=== PATIENT | female | born 1955 | race Hispanic/Latino ===

== ENCOUNTER 2020-09-29 09:00 | Observation (INO) | payer BC, MEDICARE ==
[~2020-09-29] VITALS: Ht 149.9 cm; Wt 67.8 kg
[~2020-09-29 09:00] MED LIST: LEVO125T11 PO
[2020-09-29 12:41] LABS: BASOPHILS % (AUTO) 1.2 % (0.0-5.0); EOSINOPHILS % (AUTO) 2.1 % (0.0-8.0); HEMATOCRIT 39.9 % (36-48); MEAN CORPUSCULAR HEMOGLOBIN 27.5 pg (27.0-33.0); MEAN CORPUSCULAR HGB CONC 32.1 g/dL (32.0-36.0); MEAN CORPUSCULAR VOLUME 85.6 fL (79-99); MONOCYTES % (AUTO) 7.7 % (3.0-13.0); NEUTROPHILS % (AUTO) 49.7 % (40.0-77.0); PLATELET COUNT (AUTO) 278 K/uL (130-400); RED BLOOD CELL COUNT(AUTO) 4.66 MIL/uL (4.00-5.50); RED CELL DISTRIBUTION WIDTH 14.7 % (11.0-15.5); WHITE BLOOD COUNT (AUTO) 5.7 K/uL (4.8-10.8)
[2020-09-29 13:02] LABS: INR 0.92 (0.85-1.15)
[2020-09-29 13:06] LABS: APPEARANCE,URINE Clear (CLEAR); BILIRUBIN,URINE Negative (NEGATIVE); COLOR,URINE Yellow (YELLOW); GLUCOSE, URINE (UA) Negative (NEGATIVE); KETONES,URINE Negative (NEGATIVE); LEUKOCYTE ESTERASE ,URINE Moderate (NEGATIVE); NITRATE,URINE Negative (NEGATIVE); OCCULT BLOOD,URINE Negative (NEGATIVE); PH,URINE 5.5 (5.0-8.0); PROTEIN,URINE Negative (NEGATIVE); UROBILINOGEN,URINE 0.2 mg/dL (0.2-1.0)
[2020-09-29 13:14] LABS: CREATININE 0.6 mg/dL (0.5-1.5); POTASSIUM 3.8 mmol/L (3.5-5.1)
[2020-09-29 13:34] LABS: BACTERIA,URINE Moderate /HPF (None Seen); RBC,URINE 0-1 /HPF (0-1); SQUAMOUS EPITHELIAL CELL,UR Rare /HPF (0-2); WBC,URINE 0-1 /HPF (0-1)
[2020-10-05 12:59] VITALS: BP 157/72
[2020-10-05] MEDS ORDERED: FLUT1AER IH (14:26)
[2020-10-05] MEDS ORDERED: LOSA50TA64 PO (14:26)
[2020-10-05] MEDS ORDERED: FLUT1DIS4 IH (14:26)
[2020-10-06] VITALS (25 sets, daily range): BP systolic 124–173; BP diastolic 66–93
[2020-10-06] MEDS ORDERED: SODIUM CHLORIDE 0.9% 1000ML 1,000 ML IV ONE (09:46)
[2020-10-06] MEDS: CEFAZOLIN SODIUM 1 GM VIAL ONE ×2 (10:19→14:45)
[2020-10-06] MEDS: VANCOMYCIN 1GM+NS 250ML 250 ML IV SCH ×3 (10:20→22:52)
[2020-10-06] MEDS ORDERED: NITROFURANTOIN MONOHYD/M-CRYST 100 MG CAPSULE PO SCH (12:00)
[2020-10-06] MEDS ORDERED: SCOPOLAMINE HYDROBROMIDE 1 EACH ADH..PATCH TD ONE (13:37)
[2020-10-06] MEDS ORDERED: CEFAZOLIN SODIUM 1 GM VIAL ONE ×2 (13:42→14:06)
[2020-10-06] MEDS ORDERED: TRANEXAMIC ACID 1000MG/10ML ONE ×2 (13:42→17:43)
[2020-10-06] MEDS ORDERED: VANCOMYCIN HCL 1 GM VIAL ONE (13:42)
[2020-10-06] MEDS ORDERED: ONDANSETRON HCL 4 MG/2 ML VIAL ONE (14:12)
[2020-10-06] MEDS ORDERED: MIDAZOLAM HCL 1 MG/ML 2ML VIAL ONE (14:12)
[2020-10-06] MEDS ORDERED: LIDOCAINE PF 2% 5ML ABBOJECT ONE (14:12)
[2020-10-06] MEDS ORDERED: DEXAMETHASONE SOD PHOSPHATE 10MG/ML 1ML VIAL ONE (14:12)
[2020-10-06] MEDS ORDERED: FENTANYL CITRATE PF 50 MCG/1 ML 2ML VIAL ONE ×2 (14:12→15:18)
[2020-10-06] MEDS ORDERED: PROPOFOL 10 MG/ML 20ML VIAL IV ONE (14:12)
[2020-10-06] MEDS ORDERED: ROCURONIUM 10MG/1ML SYR 10 MG/ML ML ONE ×2 (14:13→15:22)
[2020-10-06] MEDS ORDERED: ROPIVACAINE 0.5% 5MG/ML 30ML IJ ONE (14:24)
[2020-10-06] MEDS ORDERED: NEOSTIGMINE 5MG/5ML SYR IV ONE (16:48)
[2020-10-06] MEDS ORDERED: GLYCOPYRROLATE 1 MG/5 ML SYRINGE ONE (16:48)
[2020-10-06] MEDS ORDERED: LIDOCAINE HCL-MPF 1% 2ML VIAL IV PRN (17:00)
[2020-10-06] MEDS ORDERED: POTASSIUM CHLORIDE 20MEQ/100ML 100 ML IV PRN (17:00)
[2020-10-06] MEDS ORDERED: OXYCODONE HCL 5 MG TAB PO PRN ×2 (17:00)
[2020-10-06] MEDS ORDERED: TRAMADOL HCL 50 MG TABLET PO PRN (17:00)
[2020-10-06] MEDS ORDERED: ONDANSETRON HCL 4 MG/2 ML VIAL IVP PRN (17:00)
[2020-10-06] MEDS ORDERED: KETOROLAC TROMETHAMINE 15MG/ML IV PRN (17:00)
[2020-10-06] MEDS ORDERED: CALCIUM CARBONATE 500 MG TABLET PO PRN (17:00)
[2020-10-06] MEDS: SODIUM CHLORIDE 0.9% 1000ML 1,000 ML IV SCH (17:00)
[2020-10-06] MEDS: ACETAMINOPHEN EXTRA STRENGTH 500 MG TABLET PO SCH (17:00)
[2020-10-06] MEDS ORDERED: POTASSIUM CHLORIDE 20 MEQ ERTAB PO PRN (17:00)
[2020-10-06] MEDS ORDERED: POTASSIUM CHLORIDE 10% ELIXIR 20 MEQ/15 ML UDCUP PO PRN (17:00)
[2020-10-06] MEDS ORDERED: FERROUS FUMARATE 324 MG TABLET PO PRN (17:00)
[2020-10-06] MEDS ORDERED: TEMAZEPAM 15 MG CAPSULE PO PRN (17:00)
[2020-10-06] MEDS ORDERED: DiphenhydrAMINE HCL 50 MG/ML VIAL IVP PRN (17:00)
[2020-10-06] MEDS ORDERED: MEPERIDINE-PF 25 MG/ML SYG ONE ×2 (17:20→17:37)
[2020-10-06] MEDS ORDERED: KETOROLAC TROMETHAMINE 30MG/ML ONE (17:57)
[2020-10-06] MEDS ORDERED: SALMETEROL IH PRN (18:45)
[2020-10-06] MEDS ORDERED: FLUTICASONE IH PRN (18:45)
[2020-10-06] MEDS: PHARMACY COMMUNICATION MISC SCH (19:00)
[2020-10-06] MEDS: CELECOXIB 200 MG CAP PO SCH (19:42)
[2020-10-06] MEDS: PREGABALIN 25 MG CAP PO SCH (19:42)
[2020-10-06] MEDS: FAMOTIDINE 20MG TAB 20 MG TAB PO SCH (19:42)
[2020-10-06] MEDS: ASPIRIN 81MG TAB.CHEW PO SCH (19:42)
[2020-10-06] MEDS: CEFAZOLIN SODIUM 1 GM VIAL IVP SCH (21:17)
[2020-10-07] MEDS: ACETAMINOPHEN EXTRA STRENGTH 500 MG TABLET PO SCH ×3 (00:08→17:10)
[2020-10-07] MEDS: SODIUM CHLORIDE 0.9% 1000ML 1,000 ML IV SCH ×2 (02:45→13:00)
[2020-10-07] MEDS: PHARMACY COMMUNICATION MISC SCH ×2 (02:46→11:00)
[2020-10-07 03:49] LABS: HEMATOCRIT 33.6 % (36-48); MEAN CORPUSCULAR HEMOGLOBIN 27.3 pg (27.0-33.0); MEAN CORPUSCULAR HGB CONC 32.4 g/dL (32.0-36.0); MEAN CORPUSCULAR VOLUME 84.2 fL (79-99); RED BLOOD CELL COUNT(AUTO) 3.99 MIL/uL (4.00-5.50); RED CELL DISTRIBUTION WIDTH 13.9 % (11.0-15.5); WHITE BLOOD COUNT (AUTO) 9.5 K/uL (4.8-10.8)
[2020-10-07 03:57] LABS: CREATININE 0.9 mg/dL (0.5-1.5); POTASSIUM 4.2 mmol/L (3.5-5.1)
[2020-10-07 04:00] VITALS: BP 120/67
[2020-10-07] MEDS: CEFAZOLIN SODIUM 1 GM VIAL IVP SCH (05:36)
[2020-10-07] MEDS ORDERED: LEVOTHYROXINE 125 MCG TABLET PO SCH (06:30)
[2020-10-07 08:00] VITALS: BP 125/64
[2020-10-07] MEDS: CELECOXIB 200 MG CAP PO SCH (08:10)
[2020-10-07] MEDS: FAMOTIDINE 20MG TAB 20 MG TAB PO SCH (08:11)
[2020-10-07] MEDS: PREGABALIN 25 MG CAP PO SCH (08:11)
[2020-10-07] MEDS: ASPIRIN 81MG TAB.CHEW PO SCH (08:11)
[2020-10-07] MEDS ORDERED: LOSARTAN 50 MG TABLET PO SCH (09:00)
[2020-10-07] MEDS ORDERED: POLYETHYLENE GLYCOL 3350 17 GM POWD.PACK PO SCH (09:00)
[2020-10-07] MEDS ORDERED: FLUTICASONE/VILANTEROL 1 EACH AER.POW.BA IH SCH ×2 (09:00)
[2020-10-07] MEDS ORDERED: HYDR28.32 TP (09:53)
[2020-10-07] MEDS ORDERED: OXYB10TA30 PO (09:53)
[2020-10-07 11:00] VITALS: BP 123/68
[2020-10-07] MEDS: VANCOMYCIN 1GM+NS 250ML 250 ML IV SCH (12:02)
[2020-10-07 16:32] VITALS: BP 166/46
[2020-10-07] MEDS ORDERED: HYDR-4457 PO (18:11)
[2020-10-07] MEDS ORDERED: ASPI-1005 PO (18:11)
[2020-10-09] MEDS ORDERED: BISACODYL 10 MG SUPP.RECT RC PRN (17:00)
== END 2020-10-07 20:45 | disposition home health service (06) ==
LOC: EDSTATUS 09:00 → DAHIP 10-06 08:24 → 3AH 10-06 18:34
PROVIDERS: ADMIT Orthopaedic Surgery; ATTEND Orthopaedic Surgery
DX: M17.11 Unilateral primary osteoarthritis, right knee (principal); Z20.828 Contact with and (suspected) exposure to other viral communicable diseases; D64.9 Anemia, unspecified; I10 Essential (primary) hypertension; E03.9 Hypothyroidism, unspecified; E11.9 Type 2 diabetes mellitus without complications; Z90.710 Acquired absence of both cervix and uterus; Z98.82 Breast implant status; Z79.899 Other long term (current) drug therapy; Z88.5 Allergy status to narcotic agent
CPT/HCPCS: 27442; 36415 ×2; 80048 ×2; 81001; 82948 ×4; 85025; 85027; 85610; 87077; 87088; 87186; 87641; 93005; 96361 ×3; 96365; 96366 ×2; 96375; 96376; 97039 ×2; 97116 ×2; 97161; 97530 ×2; A4215; A4216; A4221; A4222; A4223 ×2; A4649 ×3; A4663; A4930; A9272; C1776; G0378 ×26; G8978; G8979; G8980; G8981; G8982; G8983; J0690 ×5; J1100; J1885; J2001; J2175 ×2; J2250; J2405 ×2; J2704; J2710; J2795; J3010 ×2; J3370 ×3; J3490 ×3; J7030; J7120; U0003

== ENCOUNTER → 2021-12-12 | Outpatient (CLI) | payer MEDICARE ==
[~2021-12-12] MED LIST changes: +ASPI-1005 PO; +FLUT1AER IH; +FLUT1DIS4 IH; +HYDR-4457 PO; +HYDR28.32 TP; +LOSA50TA64 PO; +OXYB10TA30 PO
== END | disposition home or self-care (01) ==
LOC: RAH 10:38
PROVIDERS: ATTEND Neurological Surgery
DX: M48.02 Spinal stenosis, cervical region (principal); Z98.1 Arthrodesis status
CPT/HCPCS: 72050; 72052

== ENCOUNTER 2022-10-09 07:56 | Observation (INO) | payer MEDICARE ==
[2022-10-06 12:49] LABS: BASOPHILS % (AUTO) 0.6 % (0.0-5.0); EOSINOPHILS % (AUTO) 1.9 % (0.0-8.0); HEMATOCRIT 36.4 % (36-48); LYMPHOCYTES % (AUTO) 33.3 % (21.0-51.0); MEAN CORPUSCULAR HGB CONC 31.9 g/dL (32.0-36.0); MEAN CORPUSCULAR VOLUME 84.7 fL (79-99); MONOCYTES % (AUTO) 6.9 % (3.0-13.0); PLATELET COUNT (AUTO) 273 K/uL (130-400); RED CELL DISTRIBUTION WIDTH 14.4 % (11.0-15.5); WHITE BLOOD COUNT (AUTO) 6.8 K/uL (4.8-10.8)
[2022-10-06 13:22] VITALS: BP 198/89
[2022-10-09] VITALS (28 sets, daily range): BP systolic 97–157; BP diastolic 50–83
[~2022-10-09] VITALS: Ht 152.4 cm; Wt 70.7 kg
[~2022-10-09 07:56] MED LIST changes: -ASPI-1005 PO; +EZET10TA48 PO; -FLUT1AER IH; -FLUT1DIS4 IH; +FLUTICASONE NASAL; -HYDR-4457 PO; -HYDR28.32 TP; -LEVO125T11 PO; +LEVO137C4 PO; -OXYB10TA30 PO; +SOLI10TA7 PO
[2022-10-09] MEDS ORDERED: BUPIVACAINE/PF 0.5% 30ML VIAL ONE (08:03)
[2022-10-09] MEDS ORDERED: KETOROLAC 30MG VIAL (30MG/ML) ONE (08:03)
[2022-10-09] MEDS ORDERED: TRANEXAMIC ACID 1000MG/10ML ONE ×2 (08:03→10:31)
[2022-10-09] MEDS ORDERED: LACTATED RINGERS 1000ML 1,000 ML IV ONE (08:11)
[2022-10-09] MEDS: CEFAZOLIN SODIUM 2 GM VIAL IVPB PRN ×2 (08:45→11:00)
[2022-10-09] MEDS ORDERED: ROCURONIUM 10MG/1ML SYR 10 MG/ML ML ONE (10:31)
[2022-10-09] MEDS ORDERED: MIDAZOLAM HCL 1 MG/ML 2ML VIAL ONE (10:31)
[2022-10-09] MEDS ORDERED: LIDOCAINE HCL-MPF 1% 5ML AMP IJ ONE (10:31)
[2022-10-09] MEDS ORDERED: PROPOFOL 10 MG/ML 20ML VIAL IV ONE (10:31)
[2022-10-09] MEDS ORDERED: FENTANYL CITRATE PF 50 MCG/1 ML 2ML VIAL ONE ×3 (10:32→13:25)
[2022-10-09] MEDS ORDERED: SCOPOLAMINE HYDROBROMIDE 1 EACH ADH..PATCH TD ONE (10:34)
[2022-10-09] MEDS ORDERED: ROPIVACAINE 0.5% 5MG/ML 30ML IJ ONE (11:19)
[2022-10-09] MEDS ORDERED: KETOROLAC 30MG VIAL (30MG/ML) IM ONE (11:50)
[2022-10-09] MEDS ORDERED: TRANEXAMIC ACID 1000MG/10ML IV ONE (13:20)
[2022-10-09] MEDS ORDERED: GLYCOPYRROLATE 1 MG/5 ML SYRINGE ONE (13:27)
[2022-10-09] MEDS ORDERED: NEOSTIGMINE 5MG/5ML SYR IV ONE (13:27)
[2022-10-09] MEDS ORDERED: KETOROLAC 15MG/ML VIAL (15MG/ML) IV PRN (13:30)
[2022-10-09] MEDS ORDERED: FERROUS FUMARATE 324 MG TABLET PO PRN (13:30)
[2022-10-09] MEDS ORDERED: KCL 20 MEQ ERTAB PO PRN (13:30)
[2022-10-09] MEDS ORDERED: CALCIUM CARB 500MG PO PRN (13:30)
[2022-10-09] MEDS ORDERED: POTASSIUM CHLORIDE 10% ELIXIR 20 MEQ/15 ML UDCUP PO PRN (13:30)
[2022-10-09] MEDS: KETOROLAC 15MG/ML VIAL (15MG/ML) IV SCH ×2 (13:30→20:23)
[2022-10-09] MEDS ORDERED: POTASSIUM CHLORIDE 20MEQ/100ML 100 ML IV PRN (13:30)
[2022-10-09] MEDS ORDERED: LIDOCAINE HCL-MPF 1% 2ML VIAL IV PRN (13:30)
[2022-10-09] MEDS ORDERED: SUGAMMADEX SODIUM 200 MG/2 ML VIAL IV ONE (13:36)
[2022-10-09] MEDS ORDERED: MEPERIDINE-PF 25 MG/ML SYG ONE (13:51)
[2022-10-09] MEDS: GABAPENTIN 100 MG CAPSULE PO SCH ×2 (14:00→20:22)
[2022-10-09] MEDS ORDERED: HYDROMORPHONE 1 MG INJ ONE (14:07)
[2022-10-09] MEDS ORDERED: FAMOTIDINE 20MG VIAL IV ONE (14:07)
[2022-10-09] MEDS ORDERED: ONDANSETRON 4MG INJ ONE (14:07)
[2022-10-09] MEDS: ONDANSETRON 4MG INJ IVP PRN ×2 (16:21→20:25)
[2022-10-09] MEDS: 0.9%NACL 1000ML 1,000 ML IV SCH (16:24)
[2022-10-09] MEDS: CEFAZOLIN SODIUM 1 GM VIAL IVP SCH (18:44)
[2022-10-09] MEDS: DOCUSATE SODIUM 100 MG CAP PO SCH (20:22)
[2022-10-09] MEDS: CYCLOBENZAPRINE HCL 10 MG TABLET PO PRN (20:22)
[2022-10-09] MEDS: HYDROCODONE/ACETAMINOPHEN 5/325 MG TAB PO PRN (20:24)
[2022-10-09] MEDS ORDERED: FLUTICASONE PROPIONATE 50MCG/SPRAY 16 GM BOTTLE EN PRN (21:00)
[2022-10-10] MEDS: DiphenhydrAMINE HCL 50 MG/ML VIAL IVP PRN ×2 (01:46→20:53)
[2022-10-10] MEDS: CEFAZOLIN SODIUM 1 GM VIAL IVP SCH (01:46)
[2022-10-10] MEDS: 0.9%NACL 1000ML 1,000 ML IV SCH ×2 (01:49→09:30)
[2022-10-10 04:15] VITALS: BP 128/84
[2022-10-10 04:18] VITALS: BP 136/73
[2022-10-10 04:41] LABS: HEMATOCRIT 29.3 % (36-48); MEAN CORPUSCULAR HEMOGLOBIN 27.4 pg (27.0-33.0); MEAN CORPUSCULAR HGB CONC 33.1 g/dL (32.0-36.0); MEAN CORPUSCULAR VOLUME 82.8 fL (79-99); RED BLOOD CELL COUNT(AUTO) 3.54 MIL/uL (4.00-5.50); RED CELL DISTRIBUTION WIDTH 14.2 % (11.0-15.5); WHITE BLOOD COUNT (AUTO) 6.1 K/uL (4.8-10.8)
[2022-10-10 04:55] LABS: CREATININE 0.8 mg/dL (0.5-1.5); POTASSIUM 3.8 mmol/L (3.5-5.1)
[2022-10-10] MEDS: LEVOTHYROXINE 112 MCG TABLET PO SCH (05:49)
[2022-10-10] MEDS: LEVOTHYROXINE 25 MCG TABLET PO SCH (05:49)
[2022-10-10] MEDS: KETOROLAC 15MG/ML VIAL (15MG/ML) IV SCH (05:50)
[2022-10-10 08:00] VITALS: BP 125/61
[2022-10-10] MEDS: SOLIFENACIN 10 MG PO SCH (09:00)
[2022-10-10] MEDS: GABAPENTIN 100 MG CAPSULE PO SCH ×3 (09:27→20:53)
[2022-10-10] MEDS: DOCUSATE SODIUM 100 MG CAP PO SCH ×2 (09:27→20:52)
[2022-10-10] MEDS: ASPIRIN 325MG TAB PO SCH (09:28)
[2022-10-10] MEDS: POLYETHYLENE GLYCOL 3350 17 GM POWD.PACK PO SCH (09:28)
[2022-10-10] MEDS: TRAMADOL HCL 50 MG TABLET PO PRN ×2 (09:28→17:43)
[2022-10-10 11:15] VITALS: BP 147/54
[2022-10-10] MEDS: LOSARTAN 50 MG TABLET PO SCH (12:11)
[2022-10-10] MEDS: EZETIMIBE 10 MG TAB PO SCH (12:11)
[2022-10-10] MEDS: HYDROCODONE/ACETAMINOPHEN 5/325 MG TAB PO PRN ×3 (12:12→20:55)
[2022-10-10 16:00] VITALS: BP 173/66
[2022-10-10] MEDS ORDERED: VANCOMYCIN 1G VIAL IVPB ONE (16:00)
[2022-10-10] MEDS ORDERED: VANCOMYCIN 1G/250ML KIT 250 ML IV ONE (16:30)
[2022-10-10] MEDS: CYCLOBENZAPRINE HCL 10 MG TABLET PO PRN (20:52)
[2022-10-10 21:16] VITALS: BP 166/77
[2022-10-11 00:06] VITALS: BP 151/71
[2022-10-11 04:13] VITALS: BP 145/72
[2022-10-11] MEDS: LEVOTHYROXINE 25 MCG TABLET PO SCH (05:49)
[2022-10-11] MEDS: LEVOTHYROXINE 112 MCG TABLET PO SCH (05:49)
[2022-10-11 08:00] VITALS: BP 153/74
[2022-10-11] MEDS: ASPIRIN 325MG TAB PO SCH (08:35)
[2022-10-11] MEDS: DOCUSATE SODIUM 100 MG CAP PO SCH (08:36)
[2022-10-11] MEDS: POLYETHYLENE GLYCOL 3350 17 GM POWD.PACK PO SCH (08:36)
[2022-10-11] MEDS: GABAPENTIN 100 MG CAPSULE PO SCH ×2 (08:36→14:24)
[2022-10-11] MEDS: LOSARTAN 50 MG TABLET PO SCH (08:36)
[2022-10-11] MEDS: HYDROCODONE/ACETAMINOPHEN 5/325 MG TAB PO PRN ×2 (08:36→14:24)
[2022-10-11] MEDS: EZETIMIBE 10 MG TAB PO SCH (08:36)
[2022-10-11] MEDS: SOLIFENACIN 10 MG PO SCH (09:00)
[2022-10-11 12:00] VITALS: BP 135/79
[2022-10-11 16:00] VITALS: BP 156/66
[2022-10-11] MEDS ORDERED: HYDR-4060 PO (17:34)
[2022-10-11] MEDS ORDERED: ASPI-1026 PO (17:34)
[2022-10-11] MEDS ORDERED: DOCU-116 PO (17:34)
[2022-10-11] MEDS ORDERED: CYCL-309 PO (17:34)
[2022-10-11] MEDS ORDERED: GABA100C PO (17:34)
[2022-10-12] MEDS ORDERED: BISACODYL 10 MG SUPP.RECT RC PRN (13:30)
== END 2022-10-11 18:50 | disposition home or self-care (01) ==
LOC: DAH 07:56 → DAHIP 07:57 → 4AH 15:14
PROVIDERS: ADMIT Student in an Organized Health Care Education/Training Program; ATTEND Student in an Organized Health Care Education/Training Program
DX: M17.12 Unilateral primary osteoarthritis, left knee (principal); Z20.822 Contact with and (suspected) exposure to COVID-19; D62 Acute posthemorrhagic anemia; I10 Essential (primary) hypertension; E11.9 Type 2 diabetes mellitus without complications; E03.9 Hypothyroidism, unspecified; Z79.899 Other long term (current) drug therapy; Z98.890 Other specified postprocedural states
CPT/HCPCS: 85025; 87088; 84134; 86140; 87426; 36415 ×2; 87641; 27447; 96376 ×2; 96375 ×2; 76942; 64447; 82948 ×2; 73560; 97161; 97530 ×5; 96365; 96366; 80048; 85027; 97039 ×4; 97116 ×4; G0378 ×49; A4663; A4215 ×2; J7120; J3490 ×7; J3010 ×3; J0690 ×3; J1170; J2710; J2250; J2704; J2405 ×3; J1885 ×4; J2175; J2795; G0168; A4649 ×4; C1776; A6255; A5120; A4223; A4222; A4221; J1200 ×2; J3370; A4600

== ENCOUNTER 2025-01-22 06:01 | Day surgery (SDC) | payer MEDICARE ==
--- NOTE | 2025-01-20 12:49 | EKG ---
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
[2025-01-20 12:58] VITALS: BP 132/61; PULSE 67; RESP 18; TEMP 98.1
[2025-01-20 13:32] LABS: BASOPHILS # (AUTO) 0.04 K/uL (0.00-0.20); BASOPHILS % (AUTO) 0.7 % (0.0-5.0); EOSINOPHILS # (AUTO) 0.13 K/uL (0.00-0.70); EOSINOPHILS % (AUTO) 2.3 % (0.0-8.0); HEMATOCRIT 37.9 % (36-48); IMMATURE GRANULOCYTE ABSOLUTE 0.02 K/uL (0-1); LYMPHOCYTES # (AUTO) 2.5 K/uL (1.0-4.8); MEAN CORPUSCULAR HEMOGLOBIN 28.2 pg (27.0-33.0); MEAN CORPUSCULAR HGB CONC 32.2 g/dL (32.0-36.0); MEAN CORPUSCULAR VOLUME 87.7 fL (79-99); MONOCYTES # (AUTO) 0.5 K/uL (0.1-1.0); MONOCYTES % (AUTO) 9.4 % (3.0-13.0); NEUTROPHILS # (AUTO) 2.6 K/uL (1.8-7.7); NEUTROPHILS % (AUTO) 44.3 % (40.0-77.0); PLATELET COUNT (AUTO) 265 K/uL (130-400); RED BLOOD CELL COUNT(AUTO) 4.32 MIL/uL (4.00-5.50); RED CELL DISTRIBUTION WIDTH 14.1 % (11.0-15.5); WHITE BLOOD COUNT (AUTO) 5.8 K/uL (4.8-10.8)
[2025-01-20 13:43] LABS: CREATININE 0.7 mg/dL (0.5-1.0); POTASSIUM 3.9 mmol/L (3.5-5.1)
[~2025-01-22] VITALS: Ht 149.9 cm; Wt 67.9 kg
[2025-01-22] VITALS (18 sets, daily range): BP systolic 97–129; BP diastolic 47–72; PULSE 59–79; RESP 15–20; TEMP 97–98.1
[~2025-01-22 06:01] MED LIST changes: +ATOR20TA65 PO; -EZET10TA48 PO; -FLUTICASONE NASAL; -LEVO137C4 PO; +LEVO137C5 PO; +SEMA1PEN3 SQ
[2025-01-22] MEDS ORDERED: ceFAZolin SODIUM 2 GM VIAL ONE (06:23)
[2025-01-22 06:35] LABS: INR 0.98 (0.85-1.15); PROTHROMBIN TIME 10.4 SEC (9.6-11.6)
[2025-01-22 06:37] LABS: PARTIAL THROMBOPLASTIN TIME 26.5 SEC (26.3-35.5)
[2025-01-22] MEDS: 0.9%NACL 1000ML 1,000 ML IV ONE (06:46)
[2025-01-22] MEDS ORDERED: VANCOMYCIN 1G/250ML KIT 0 ML IV ONE (07:29)
[2025-01-22] MEDS ORDERED: ceFAZolin SODIUM 1 GM VIAL ONE (07:30)
[2025-01-22] MEDS ORDERED: proPOFol 10 MG/ML 20ML VIAL IV ONE (07:50)
[2025-01-22] MEDS ORDERED: GLYCOPYRROLATE 0.2 MG/ML 5 ML VIAL ONE (07:50)
[2025-01-22] MEDS ORDERED: LIDOCAINE PF 100MG/5ML (2%) SYRINGE 5ML ONE (07:50)
[2025-01-22] MEDS ORDERED: dexaMETHasone SOD PHOSPHATE 10MG/ML 1ML VIAL ONE (07:50)
[2025-01-22] MEDS ORDERED: NEOSTIGMINE METHYLSULFATE 1MG/ML IV ONE (07:51)
[2025-01-22] MEDS ORDERED: SUCCINYLCHOLINE CHLORIDE 20 MG/ML 10 ML VIAL ONE (07:51)
[2025-01-22] MEDS ORDERED: MIDAZOLAM HCL 1 MG/ML 2ML VIAL ONE (07:51)
[2025-01-22] MEDS ORDERED: ondanSETRON 4MG INJ ONE (07:51)
[2025-01-22] MEDS ORDERED: rocuRONium bROMide 10MG/1ML 5ML VL ONE (07:51)
[2025-01-22] MEDS ORDERED: FENTanyl CITRate PF 50 MCG/1 ML 2ML VIAL ONE ×2 (07:51→08:50)
[2025-01-22] MEDS: ceFAZolin SODIUM 2 GM VIAL IVPB ONE (08:09)
[2025-01-22] MEDS ORDERED: BUPIvacaine/PF 0.5% 30ML VIAL ONE (09:02)
--- NOTE | 2025-01-22 09:24 | OP ---
Operative Note: DATE OF PROCEDURE: 01/22/25 SURGEON: RANJIT GILLETTE MD BOOM TRUCK DRIVER: [Neto Maurice CFA] ANESTHESIA: [General plus local] ANESTHESIOLOGIST/COMPREHENSIVE ADVISOR: [Dr. 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 chondroplasty medial and lateral femoral condyles] ESTIMATED BLOOD LOSS: [Less than 10 mL] INDICATIONS: [The patient is a 69-year-old female that has a history of a previous patellofemoral joint replacement several years ago. The patient developed a sudden pain to the lateral aspect of the joint several months ago that we have treated conservatively with no improvement. An MRI was performed which was suspicious for a possible lateral meniscal tear which clinically the patient seemed to have. The patient is brought to the operating room for an arthroscopic procedure that she understood, risks, benefits possible complications and agreed to sign the consent form.] DESCRIPTION OF PROCEDURE: [A thorough adequate general anesthesia was achieved the patient's right lower extremity was prepped and draped in the usual manner previous trimming of the tourniquet in the proximal thigh. The extremity was elevated and exsanguinated with an Esmarch bandage the tourniquet was inflated to 250 mg of mercury. The knee was brought to the side of the table and we proceeded then to make two small incisions medial and lateral to the patellar tendon at the joint line level through the skin followed by blunt dissection and the arthroscope cannula was inserted laterally. The knee was brought then into extension on top of the table and evaluation of the patellofemoral joint revealed the components were in good shape but they were covered by some synovial tissue and through the medial portal we proceeded to use the shaver to remove it. Then bending the knee back to the side of the table we found that the patient had also some synovial tissue in the most distal aspect of the femoral component just above the trochlea and this was sharply debrided. Attention was given then to the medial compartment where we noticed that the meniscus was intact with the patient had a very extensive grade 4 chondromalacia of the medial half of the condyle weight-bearing surface. We probed the meniscus to make sure that there was no tears. The loose edges of the condylar defect was sharply debrided with a shaver. Attention was given to the lateral compartment and after passing the arthroscope to the trochlea we noted that the ACL and PCL were intact. Once in the lateral compartment we noticed a very obvious tear along the fibers of the anterior horn of the meniscus and initially my opinion was that I my be able to fix it with sutures. We proceeded then to re-evaluate the rest of the joint bringing the knee into a figure of four and it was noted that the meniscus was intact of the body and posterior horn but the patient presented also grade 3 and four chondromalacia of the most medial aspect of the lateral condyle weight-bearing surface with loose fragments that were sharply debrided. This defect which was more obvious anteriorly make contact with the meniscal tear on flexion and extension. Then I attempted to do a repair of the meniscus by making an incision following the surgical scar for approximately 1 to 1 1/2 inches followed by dissection of the subcutaneous tissue. The patient has significant amount of subcutaneous tissue which was difficult for us to identified the meniscal area. Then we proceeded to penetrate with the hemostat through the medial portal to the same area and after we exposed the tear better we noticed that there was more straightening of the meniscus towards the anterior rim of the tibia and at this point I concluded that it was not going to be possible to pass several stitches through this area. For this reason this part of the procedure was aborted and I proceeded to reapply the scope laterally and then with the use of the medial portal I proceeded then to do a partial lateral meniscectomy by removal of the anterior horn leaving the body and posterior horn of the meniscus. After this was completed the tourniquet was deflated and the arthroscopic wounds were closed with 3-0 nylon sutures. The small incision done in the previous surgical scar was closed with the use of 2-0 Monocryl inverted stitches and a 3-0 Monocryl for closure of the skin subcuticularly. Dermabond was applied to the last incision and a dressing was applied to cover the incisions followed by application of an Chandu bandage. The drapes were then removed and the patient was not transferred to her bed and taken to recovery room for follow-up by anesthesia. There were no complications in the procedure.] RANJIT GILLETTE MD Jan 22, 2025 09:23
[2025-01-22] MEDS: MEPERIDINE-PF 50 MG/ML SYG ONE (10:06)
== END 2025-01-22 11:20 | disposition home or self-care (01) ==
LOC: DAH 06:01
PROVIDERS: ATTEND Orthopaedic Surgery
DX: S83.289A Other tear of lateral meniscus, current injury, unspecified knee, initial encounter (principal); M65.961 Unspecified synovitis and tenosynovitis, right lower leg; M94.261 Chondromalacia, right knee; I10 Essential (primary) hypertension; E11.9 Type 2 diabetes mellitus without complications; E03.9 Hypothyroidism, unspecified; M19.90 Unspecified osteoarthritis, unspecified site; Z79.890 Hormone replacement therapy; Z79.01 Long term (current) use of anticoagulants; Z90.710 Acquired absence of both cervix and uterus; Z82.49 Family history of ischemic heart disease and other diseases of the circulatory system; Z88.5 Allergy status to narcotic agent; Z88.2 Allergy status to sulfonamides; Z79.899 Other long term (current) drug therapy; Z98.890 Other specified postprocedural states; X58.XXXA Exposure to other specified factors, initial encounter; Y93.89 Activity, other specified; Y92.89 Other specified places as the place of occurrence of the external cause; Y99.8 Other external cause status
CPT/HCPCS: 80048; 85025; 36415 ×2; 93005; 29881; 85610; 85730; 82948 ×2; A4223 ×2; A4663; J7120; A4649 ×2; J3010 ×2; J1100; J0330; J7030; J3490 ×2; J2003; J2250; J2704; J2405; J2710; J0665; J2175; J0690 ×2; A6223; A4930; A5120; A4215; A4213; A4222; A4221; A4216; A6450; J3370

== ENCOUNTER 2025-04-16 08:59 | Observation (INO) | payer MEDICARE ==
[2025-04-15 13:57] LABS: BASOPHILS # (AUTO) 0.03 K/uL (0.00-0.20); BASOPHILS % (AUTO) 0.5 % (0.0-5.0); EOSINOPHILS # (AUTO) 0.12 K/uL (0.00-0.70); HEMATOCRIT 38.1 % (36-48); IMMATURE GRANULOCYTE ABSOLUTE 0.01 K/uL (0-1); LYMPHOCYTES # (AUTO) 2.6 K/uL (1.0-4.8); LYMPHOCYTES % (AUTO) 43.6 % (21.0-51.0); MEAN CORPUSCULAR HEMOGLOBIN 28.6 pg (27.0-33.0); MEAN CORPUSCULAR HGB CONC 32.8 g/dL (32.0-36.0); MEAN CORPUSCULAR VOLUME 87.2 fL (79-99); MONOCYTES # (AUTO) 0.6 K/uL (0.1-1.0); MONOCYTES % (AUTO) 9.7 % (3.0-13.0); NEUTROPHILS # (AUTO) 2.6 K/uL (1.8-7.7); PLATELET COUNT (AUTO) 307 K/uL (130-400); RED BLOOD CELL COUNT(AUTO) 4.37 MIL/uL (4.00-5.50); RED CELL DISTRIBUTION WIDTH 14.6 % (11.0-15.5)
[2025-04-15 14:00] LABS: APPEARANCE,URINE CLEAR (CLEAR); BILIRUBIN,URINE NEGATIVE (NEGATIVE); COLOR,URINE LIGHT-YELLOW (YELLOW); GLUCOSE, URINE (UA) NEGATIVE (NEGATIVE); KETONES,URINE NEGATIVE (NEGATIVE); LEUKOCYTE ESTERASE ,URINE NEGATIVE Leu/uL (NEGATIVE); NITRATE,URINE NEGATIVE (NEGATIVE); OCCULT BLOOD,URINE NEGATIVE (NEGATIVE); PH,URINE 5.5 (5.0-8.0); PROTEIN,URINE NEGATIVE (NEGATIVE); UROBILINOGEN,URINE 0.2 mg/dL (0.2-1.0)
[2025-04-15 14:06] LABS: ADD UA MICROSCOPIC NO
--- NOTE | 2025-04-15 14:17 | EKG ---
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
--- NOTE | 2025-04-15 14:30 | NUR ---
preop romain rt instructed pt on incentive spirometry
[2025-04-15 14:51] VITALS: BP 135/73; PULSE 67; RESP 18; TEMP 97.6
--- NOTE | 2025-04-15 15:30 | NUR ---
report dr cadet informed pt has not had a solid meal today. ok for pt to eat then clears until midnight. pt voiced understanding
--- NOTE | 2025-04-15 15:30 | NUR ---
report dr cadet reviewed ekg. ok to proceed
--- NOTE | 2025-04-15 18:34 | NUR ---
[facility] CM SPOKE TO PATIENT OVER THE PHONE THIS EVENING, INITIAL ASSESSMENT DONE. PATIENT IS INDEPENDENT PRIOR TO SURGERY, LIVES AT HOME ALONE, SON LIVES CLOSE BY. PATIENT ALREADY HAS A STANDARD WALKER AND CANE AT HOME. DENIES ANY OTHER EQUIPMENT/SERVICES. FEELS SAFE TO GO BACK HOME, DISCUSSED POSSIBLE HH VS REHAB AT SNF, PT AGREEABLE TO HOME W/HOME HEALTH, TELEPHONE CONSENT CHRISTY OBTAINED FOR [facility]. PENDING DR GILLETTE TNMariajose RECOMMENDATIONS AT THIS TIME. [facility] HOME W/HH ONCE APPROVED. CM TO CONTINUE TO FOLLOW UP. Addendum: 04/15/25 at 1837 by ARSEN LOWE LVN Amended: Links added.
[2025-04-16] VITALS (28 sets, daily range): BP systolic 105–178; BP diastolic 56–91; PULSE 60–99; RESP 14–20; TEMP 97.3–98.2
[~2025-04-16] VITALS: Ht 149.9 cm; Wt 67.1 kg
[~2025-04-16 08:59] MED LIST changes: -ATOR20TA65 PO; +PHARMACY COMMUNICATION MISC SCH
[2025-04-16] MEDS: 0.9%NACL 1000ML 1,000 ML IV ONE (10:06)
[2025-04-16] MEDS: ceFAZolin SODIUM 2 GM VIAL ONE (10:06)
[2025-04-16] MEDS: acetaMINOPHEN 100 ML ONE (11:41)
[2025-04-16] MEDS: GABAPENTIN 300 MG CAPSULE ONE (11:41)
[2025-04-16] MEDS: FAMOTIDINE 20MG VIAL IV ONE (11:41)
[2025-04-16] MEDS: TRANEXAMIC ACID 1000MG/10ML ONE ×2 (11:52→16:35)
[2025-04-16] MEDS ORDERED: ketaMINE 50MG/ML SYRINGE 50 MG/ML DISP.SYRIN ONE (12:11)
[2025-04-16] MEDS ORDERED: ROPivacaine 0.5% 5MG/ML 30ML ONE (12:11)
[2025-04-16] MEDS ORDERED: ceFAZolin SODIUM 1 GM VIAL ONE (12:12)
[2025-04-16] MEDS ORDERED: VANCOMYCIN 500MG+NS 100ML 100 ML IV ONE (12:13)
[2025-04-16] MEDS ORDERED: LIDOCAINE PF 100MG/5ML (2%) SYRINGE 5ML ONE (12:15)
[2025-04-16] MEDS ORDERED: rocuRONium bROMide 10MG/1ML 5ML VL ONE (12:15)
[2025-04-16] MEDS ORDERED: proPOFol 10 MG/ML 20ML VIAL IV ONE (12:15)
[2025-04-16] MEDS ORDERED: FENTanyl CITRate PF 50 MCG/1 ML 2ML VIAL ONE ×2 (12:16→15:36)
[2025-04-16] MEDS ORDERED: ondanSETRON 4MG INJ ONE (12:47)
[2025-04-16] MEDS ORDERED: dexaMETHasone SOD PHOSPHATE 10MG/ML 1ML VIAL ONE (12:47)
[2025-04-16] MEDS ORDERED: GLYCOPYRROLATE 0.2 MG/ML 5 ML VIAL ONE (13:03)
[2025-04-16] MEDS ORDERED: NEOSTIGMINE METHYLSULFATE 1MG/ML IV ONE (13:03)
[2025-04-16] MEDS: ceFAZolin SODIUM 2 GM VIAL IVPB ONE (13:05)
[2025-04-16] MEDS ORDERED: dexmedeTOMIDine HCL 200 MCG/2 ML VIAL IV ONE (13:40)
--- NOTE | 2025-04-16 15:54 | OP ---
Operative Note: DATE OF PROCEDURE: 04/16/25 SURGEON: RANJIT GILLETTE MD CREDIT CARD INTERVIEWER: [Neto Maurice CFA] ANESTHESIA: [General anesthesia plus regional block] ANESTHESIOLOGIST/TRAINING SYSTEMS OFFICER: [Efrain Lemon CRNA] PREOPERATIVE DIAGNOSIS: [Right knee osteoarthritis. History of patellofemoral replacement] POSTOPERATIVE DIAGNOSIS: [Same] IMPLANTS: [Biomet vanguard femur PS size 60 right. Tibia size 71 fixed cruciate. Tibial liner size 10 x 71/75 PS] PROCEDURE: [Revision to right total knee arthroplasty] ESTIMATED BLOOD LOSS: [100 mL] INDICATIONS: [The patient is a 69-year-old female with a history of ost eoarthritis of the knee initially mostly affecting the patellofemoral joint and require a patellofemoral replacement 2-3 years ago. The patient laid across the complaining of pain in the lateral compartment and an arthroscopic procedure demonstrated the presence of a medial and lateral meniscal tears as well as more significant degenerative changes of arthritis of the femoral condyles. The patient continues guide pain and at this time requests to proceed with a total knee arthroplasty. Procedure understood, risks, benefits and possible complications and the patient agreed signed the consent form.] DESCRIPTION OF PROCEDURE: [After adequate general anesthesia was achieved and regional block obtained the right lower extremity was prepped and draped in the usual manner previous placement of the tourniquet in the proximal thigh. The extremity was then elevated and exsanguinated with an Esmarch bandage and the tourniquet inflated to 250 mmHg the Esmarch band been then removed. With the knee in flexion a longitudinal incision was then made in the anterior aspect through the skin following the surgical scar present from previous surgery. This was then followed by dissection of the subcutaneous tissue. A bone trocar was then inserted just medial to the tibial tuberosity and an infusion of 50 mL of normal saline mixed with 500 mg of vancomycin were then injected into the bone. A paramedian approach was then made with the Bovie cautery cutting through the quadriceps tendon, medial patellar retinaculum and patellar tendon retinaculum. The retropatellar tendon fat/scar was then excised and the soft tissue elements of the tibia were elevated subperiosteally and retractors were applied medially and laterally . The anterior and posterior cruciate ligaments were resected. The patient had a patellofemoral component from previous surgery and the patella was noted to be intact and the component also intact and proceeded just to remove minimal scar tissue surrounding the component. The femoral component was then removed using small oscillating saw with very thin blade. Once the component was removed small amount of bone was maintained with the component and this created a defect in the dorsal aspect of the femur. Then the guide for the femoral canal was then used to enter the intramedullary canal and then an intramedullary guide was inserted with a 5 degree valgus block that touched the distal femur and to this the distal femoral cutting guide was then applied anteriorly and was secured to the distal femur with the use of pins. The intramedullary guide was then removed and with the use of the oscillating saw we proceeded to resect the distal femur removing the fragments and the guide. The femoral sizer was then applied distally and drill holes were made removing the sizer and the 4-in-1 cutting block was then inserted and the anterior, posterior and chamfer cuts were made removing the fragments and the block. The PS cutting guide was then inserted and the intercondylar cut was made removing the fragment and the guide. The trial components were then inserted at the femur and it was noted that covered the defect previously mentioned. Cortical cancellous bone fragments obtained from the distal femoral condyles were then trimmed and shaped to cover the cortical cancellous defect present in the anterior aspect and after these were in position we used threaded pins x2 to secure the main fragment and then the we irrigated the femoral canal with the antibiotic solution and more large fragments were then used to seal the intramedullary canal. The posterior cruciate ligament retractor was then inserted posterior to the tibia and this was brought forward proceeding then to apply the external tibial alignment guide and secured the proximal cutting guide to the tibia with the use of pins. With the use of the oscillating saw the proximal cut to the tibia tibia was made. The bone fragment was removed and the trial tibia plate was chosen. At this point the menisci were removed sharply and with the use of the curved osteotome the posterior osteophytes of the femur were removed and the femoral and tibia trial were applied as well as the tibial liner bringing the knee into extension noticing that the patient had a very stable knee in flexion, extension and with valgus and varus stress. The patellofemoral ligament was removed and then the patellofemoral tracking was checked noticing to be slightly lateralized and for this reason a small lateral release was performed bringing the tracking of the patella back to normal. At this moment all the components were removed, the tibia after the metaphyseal defect was created and while cement was being mixed on the back table we proceeded to irrigate the joint with antibiotic solution and then cover the entry to the femoral canal with a bone plug. Once the cement was ready we proceeded to apply it first to the tibia surface inserting the final component and then to the femoral surface and inserted the final component removing the excess cement and then applying a trial liner bringing the knee into extension for compression. The joint was irrigated with a warm diluted Betadine solution while the cement dried followed by irrigation with antibiotic solution. The trial liner was removed as well as the patellar clamp and we proceeded then to irrigate the posterior aspect of the joint to remove all the remaining debris and the final tibial liner was inserted and locked against the tibia. The range of motion was checked and noticed to be adequate with full extension and flexion, no laxity in valgus or varus stress and with adequate patellofemoral tracking. The tourniquet was deflated and this was followed by hemostasis. Afte r further irrigation of the wound with Xperience solution the wound was then closed with approximation of the quadriceps tendon, patellar retinaculum and patellar tendon retinaculum with #1 Vicryl close stitches alternating with #1 Ethibond stitches, and closure of the subcutaneous tissue with 2-0 Monocryl inverted stitches and the skin was closed with 3-0 Monocryl subcuticularly. The wound was covered with a suction dressing followed by application of an Chandu bandage for compression and the drapes were then removed transferring the patient to the hospital bed and taken to recovery room for follow-up by anesthesia. There were no complications during the procedure.] RANJIT GILLETTE MD Apr 16, 2025 15:54
[2025-04-16] MEDS ORDERED: PoTASSium chl 10% ELIXIR 20MEQ 20 MEQ/15 ML UDCUP PO PRN (16:00)
[2025-04-16] MEDS ORDERED: PoTASSium chloRIDE 20MEQ/100ML 100 ML IV PRN (16:00)
[2025-04-16] MEDS ORDERED: FERROUS FUMARATE 324 MG TABLET PO PRN (16:00)
[2025-04-16] MEDS ORDERED: TEMAZepam 15 MG CAPSULE PO PRN (16:00)
[2025-04-16] MEDS: 0.9%NACL 1000ML 1,000 ML IV SCH (16:00)
[2025-04-16] MEDS ORDERED: HYDROcodone/APAP 5/325 1 TAB TABLET PO PRN (16:00)
[2025-04-16] MEDS ORDERED: PoTASSium chloRIDE 20MEQ ER 20 MEQ ERTAB PO PRN (16:00)
[2025-04-16] MEDS ORDERED: DiphenhydrAMINE HCL 50 MG/ML VIAL IVP PRN (16:00)
[2025-04-16] MEDS: INSULIN humuLIN R 100 UNIT/ML 3ML SQ SCH (16:30)
[2025-04-16] MEDS: FENTanyl CITRate PF 50 MCG/1 ML 2ML VIAL ONE (17:06)
[2025-04-16] MEDS: HYDROcodone/APAP 5/325 1 TAB TABLET PO PRN (18:05)
[2025-04-16] MEDS: ondanSETRON 4MG INJ IVP PRN (18:05)
[2025-04-16] MEDS: ketOROlac 15MG/ML VIAL (15MG/ML) IV PRN (18:49)
[2025-04-16] MEDS: oxyBUTYnin chloRIDE 5 MG TABLET PO SCH (20:45)
[2025-04-16] MEDS: ceFAZolin SODIUM 2 GM VIAL IVP SCH (20:45)
[2025-04-16] MEDS ORDERED: ASPIRIN 81 MG EC TAB PO SCH (21:00)
[2025-04-17] VITALS (7 sets, daily range): BP systolic 107–138; BP diastolic 53–98; PULSE 68–79; RESP 16–20; TEMP 97.4–98.4; O2SAT 96
[2025-04-17] MEDS: HYDROcodone/APAP 5/325 1 TAB TABLET PO PRN (02:38)
[2025-04-17 03:25] LABS: MEAN CORPUSCULAR HEMOGLOBIN 28.9 pg (27.0-33.0); MEAN CORPUSCULAR HGB CONC 32.6 g/dL (32.0-36.0); MEAN CORPUSCULAR VOLUME 88.6 fL (79-99); RED BLOOD CELL COUNT(AUTO) 3.5 MIL/uL (4.00-5.50); RED CELL DISTRIBUTION WIDTH 14.6 % (11.0-15.5); WHITE BLOOD COUNT (AUTO) 9.4 K/uL (4.8-10.8)
[2025-04-17 03:29] LABS: CREATININE 0.7 mg/dL (0.5-1.0); POTASSIUM 3.9 mmol/L (3.5-5.1)
[2025-04-17] MEDS: polyETHYLene GLYCol 3350 17 GM POWD.PACK PO SCH (08:14)
[2025-04-17] MEDS: APIXaban 2.5 MG TABLET PO SCH (08:14)
[2025-04-17] MEDS: CALCIUM CARB 500MG PO PRN (08:14)
[2025-04-17] MEDS: FAMOTIDINE 20MG TAB PO SCH (08:14)
[2025-04-17] MEDS: LoSARTan 50 MG TABLET PO SCH (09:00)
--- NOTE | 2025-04-17 10:46 | NUR ---
PAIN MEDICATION GIVEN ACCORDING TO PAIN SCORE . TORADOL WS GIVEN FOR BREAK THRU PAIN . PER PATIENT STATED HELPED HER BUT STATED SHE NEEDS HER 2 PAIN PILLS EVERY 4 HOURS . EXPLAINED PATIENT PATIENT ORDER FOR NORCO IS Q 6 PRN AND MESSAGED DOCTOR REGARDING HER PAIN CONTROL REQUEST FOR NORCO . PATIENT CONTINUED TO STATED SHE SHOULD BE GETTING HER PAIN PILLS EVERY 4 HRS AND NOT EVERY 6HRS. MESSAGED DR GILLETTE ,PENDING CALL BACK , INFORMED CHARGE NURSE VERA OF ISSUE OF PATIENTS COMPLAINT
[2025-04-17] MEDS ORDERED: OXYcodONE HCL 5 MG TAB PO PRN (12:30)
[2025-04-17] MEDS: OXYcodONE HCL 5 MG TAB PO PRN (13:03)
--- NOTE | 2025-04-17 13:40 | NUR ---
ORTHO COORDINATOR: PATIENT UP WITH PHYSICAL THERAPY. [id number] CONFERENCE WITH PRIMARY NURSE. PAIN MANAGEMENT STRATEGY DISCUSSED WITH SURGEON, CHANGES MADE. PRIMARY NURSE WILL MONITOR FOR SUCCESS OF NEW STRATEGY.
--- NOTE | 2025-04-17 15:15 | NUR ---
Pt PT session went much better today. Pt able to walk > 75 ft and patient requested not to use purewik, has been with SBA of significant other in room to RR per patient. Pt is able to get in and out of bed with support to operated leg, patient is able to pull self up in bed with rails and pushing with non operated leg.
--- NOTE | 2025-04-17 16:54 | PN ---
Postop day 1. Status post revision arthroplasty right knee. Vital signs stable. Afebrile. Laboratory reviewed. The patient had a very difficult time with pain since waking up from anesthesia until early this morning. Just recently we switch her to oxycodone which seems to have calmed her down quite a bit. She has difficulty with the physical therapy also because of the pain. The patient has been informed about the findings of the procedure as well as what we did. She is awake, alert and oriented. Her respiratory rate and rhythm is normal and she is in no distress. Her dressing is intact, distal neurovascular exam is normal in the leg has mild to moderate edema. Assessment: Status post revision arthroplasty right knee. Plan: The patient has been accepted already for home health but she would like to stay at least one more day because of the pain. The patient would like to also progress with physical therapy a little more and she feels not comfortable going home. We will see how she is doing in the morning and if needed we will keep her until she is able to ambulate better and have better pain control. Vitals/Labs Vital Signs Date Time Temp Pulse Resp B/P (MAP) Pulse Ox O2 Delivery O2 Flow Rate FiO2 04/17/25 16:13 97.9 70 18 127/98 94 Room Air 04/17/25 00:00 2.0 04/16/25 20:00 28 Laboratory Tests 04/17/25 02:57 Medications Current Medications Pharmacy Profile Note 1 each ONCE MISC; Start 04/15/25 at 15:00; Stop 04/15/25 at 15:00; Status DC Cefazolin Sodium 2 gm STK-MED ONCE .ROUTE; Start 04/16/25 at 09:34; Stop 04/16/25 at 09:34; Status DC Sodium Chloride 1,000 ml @ As Directed STK-MED ONCE IV Last administered on 04/16/25at 10:06; Start 04/16/25 at 09:34; Stop 04/16/25 at 09:34; Status DC Gabapentin 300 mg STK-MED ONCE .ROUTE; Start 04/16/25 at 11:41; Stop 04/16/25 at 11:41; Status DC Acetaminophen 100 ml @ As Directed STK-MED ONCE .ROUTE; Start 04/16/25 at 11:41; Stop 04/16/25 at 11:41; Status DC Famotidine 20 mg STK-MED ONCE IV; Start 04/16/25 at 11:41; Stop 04/16/25 at 11:41; Status DC Tranexamic Acid 1,000 mg STK-MED ONCE .ROUTE; Start 04/16/25 at 11:52; Stop 04/16/25 at 11:52; Status DC Ropivacaine 150 mg STK-MED ONCE .ROUTE; Start 04/16/25 at 12:11; Stop 04/16/25 at 12:11; Status DC Ketamine HCl 50 mg STK-MED ONCE .ROUTE; Start 04/16/25 at 12:11; Stop 04/16/25 at 12:11; Status DC Cefazolin Sodium 1 gm STK-MED ONCE .ROUTE; Start 04/16/25 at 12:12; Stop 04/16/25 at 12:13; Status DC Vancomycin HCl 100 ml @ As Directed STK-MED ONCE IV; Start 04/16/25 at 12:13; Stop 04/16/25 at 12:13; Status DC Lidocaine HCl 100 mg STK-MED ONCE .ROUTE; Start 04/16/25 at 12:15; Stop 04/16/25 at 12:16; Status DC Propofol 200 mg STK-MED ONCE IV; Start 04/16/25 at 12:15; Stop 04/16/25 at 12:16; Status DC Rocuronium [place] 50 mg STK-MED ONCE .ROUTE; Start 04/16/25 at 12:15; Stop 04/16/25 at 12:16; Status DC Fentanyl Citrate 100 mcg STK-MED ONCE .ROUTE; Start 04/16/25 at 12:16; Stop 04/16/25 at 12:16; Status DC Ondansetron HCl 4 mg STK-MED ONCE .ROUTE; Start 04/16/25 at 12:47; Stop 04/16/25 at 12:47; Status DC Dexamethasone Sodium Phosphate 10 mg STK-MED ONCE .ROUTE; Start 04/16/25 at 12:47; Stop 04/16/25 at 12:48; Status DC Glycopyrrolate 1 mg STK-MED ONCE .ROUTE; Start 04/16/25 at 13:03; Stop 04/16/25 at 13:03; Status DC Neostigmine Methylsulfate 10 mg STK-MED ONCE IV; Start 04/16/25 at 13:03; Stop 04/16/25 at 13:03; Status DC Dexmedetomidine HCl 200 mcg STK-MED ONCE IV; Start 04/16/25 at 13:40; Stop 04/16/25 at 13:40; Status DC Cefazolin Sodium 2 gm STK-MED ONCE IVPB Last administered on 04/16/25at 13:05; Start 04/16/25 at 13:05; Stop 04/16/25 at 13:48; Status DC Tranexamic Acid 1,000 mg STK-MED ONCE IV Last administered on 04/16/25at 13:11; Start 04/16/25 at 13:11; Stop 04/16/25 at 13:48; Status DC Vancomycin HCl 500 mg STK-MED ONCE IJ Last administered on 04/16/25at 13:45; Start 04/16/25 at 13:45; Stop 04/16/25 at 13:48; Status DC Cefazolin Sodium 3 gm STK-MED ONCE IVPB Last administered on 04/16/25at 13:26; Start 04/16/25 at 13:26; Stop 04/16/25 at 13:48; Status DC Fentanyl Citrate 100 mcg STK-MED ONCE .ROUTE; Start 04/16/25 at 15:36; Stop 04/16/25 at 15:36; Status DC Sodium Chloride 1,000 ml @ 100 mls/hr Q10H IV Last administered on 04/17/25at 01:10; Start 04/16/25 at 16:00; Stop 04/17/25 at 15:59; Status DC Polyethylene Glycol 17 gm DAILY PO Last administered on 04/17/25at 08:14; Start 04/17/25 at 09:00; Stop 05/17/25 at 08:59 Bisacodyl 10 mg DAILY PRN RC; Start 04/19/25 at 16:00; Stop 05/19/25 at 15:59 Ketorolac Tromethamine 15 mg Q6H PRN IV Last administered on 04/17/25at 08:14; Start 04/16/25 at 16:00; Stop 04/21/25 at 15:59 Famotidine 20 mg DAILY PO Last administered on 04/17/25at 08:14; Start 04/17/25 at 09:00; Stop 05/17/25 at 08:59 Ferrous Fumarate 324 mg DAILY PRN PO; Start 04/16/25 at 16:00; Stop 05/16/25 at 15:59 Temazepam 15 mg HS PRN PO; Start 04/16/25 at 16:00; Stop 05/16/25 at 15:59 Ondansetron HCl 4 mg Q6H PRN IVP Last administered on 04/17/25at 08:14; Start 04/16/25 at 16:00; Stop 05/16/25 at 15:59 Calcium Carbonate 500 mg Q12H PRN PO Last administered on 04/17/25at 08:14; Start 04/16/25 at 16:00; Stop 05/16/25 at 15:59 Diphenhydramine HCl 25 mg Q6H PRN IVP; Start 04/16/25 at 16:00; Stop 05/16/25 at 15:59 Insulin Human Regular INSULIN SLIDING SCAL... ACHS SQ; Start 04/16/25 at 16:30; Stop 05/16/25 at 16:29 Cefazolin Sodium 2 gm Q8H IVP Last administered on 04/17/25at 04:55; Start 04/16/25 at 21:00; Stop 04/17/25 at 05:01; Status DC Potassium Chloride 100 ml @ 100 mls/hr AD PRN IV; Start 04/16/25 at 16:00; Stop 05/16/25 at 15:59 Potassium Chloride 20 meq AD PRN PO; Start 04/16/25 at 16:00; Stop 05/16/25 at 15:59 Potassium Chloride 20 meq AD PRN PO; Start 04/16/25 at 16:00; Stop 05/16/25 at 15:59 Acetaminophen/ Hydrocodone Bitart Q4H PRN PO; Start 04/16/25 at 16:00; Stop 04/16/25 at 16:36; Status DC Aspirin 81 mg BID PO; Start 04/16/25 at 21:00; Stop 04/16/25 at 21:26; Status DC Tranexamic Acid 1,000 mg STK-MED ONCE .ROUTE Last administered on 04/16/25at 16:35; Start 04/16/25 at 16:31; Stop 04/16/25 at 16:31; Status DC Acetaminophen/ Hydrocodone Bitart 1 tab Q6H PRN PO Last administered on 04/16/25at 20:45; Start 04/16/25 at 17:00; Stop 04/17/25 at 12:34; Status DC Acetaminophen/ Hydrocodone Bitart 2 tab Q6H PRN PO Last administered on 04/17/25at 06:39; Start 04/16/25 at 17:00; Stop 04/17/25 at 12:34; Status DC Fentanyl Citrate 100 mcg STK-MED ONCE .ROUTE Last administered on 04/16/25at 17:06; Start 04/16/25 at 17:00; Stop 04/16/25 at 17:00; Status DC Losartan Potassium 50 mg DAILY PO; Start 04/17/25 at 09:00; Stop 05/17/25 at 08:59 Home Med Levothyroxine 137 MCG AM PO; Start 04/17/25 at 09:00; Stop 05/17/25 at 08:59 Miscellaneous Medication 10 mg AM PO; Start 04/17/25 at 09:00; Stop 04/16/25 at 19:22; Status DC Oxybutynin Chloride 5 mg TID PO Last administered on 04/17/25at 16:10; Start 04/16/25 at 21:00; Stop 05/16/25 at 20:59 Apixaban 2.5 mg BID PO Last administered on 04/17/25at 08:14; Start 04/17/25 at 09:00; Stop 05/17/25 at 08:59 Oxycodone HCl 5 mg Q6H PRN PO; Start 04/17/25 at 12:30; Stop 04/24/25 at 12:29 Oxycodone HCl 10 mg Q6H PRN PO Last administered on 04/17/25at 13:03; Start 04/17/25 at 12:30; Stop 04/24/25 at 12:29 RANJIT GILLETTE MD Apr 17, 2025 16:54
--- NOTE | 2025-04-17 17:01 | DS ---
DISCHARGE SUMMARY [Date of admission: 04/16/2025 Date of discharge: 04/17/2025 Final diagnosis: Right Knee osteoarthritis. History of patellofemoral joint replacement Surgical procedures: Right total Knee revision arthroplasty on 04/17/2025 Summary of History and Physical: The patient is a 69 year-old female with history of severe arthrosis to the right knee that has been present for several years and has been treated conservatively and later on with the patellofemoral replacement a few years ago but the arthritis progress. An arthroscopic procedure was also performed where she was found to have meniscal tears as well as advancement of the arthritis in the tibiofemoral surface. The patient had no longer adequate response to treatment. The patient is being admitted for total knee arthroplasty revision. Previous medical history: Diabetes mellitus, hypertension, arthritis, cervical spondylosis, hypothyroidism Previous surgical history: Total hysterectomy, cervical spine surgery, right heel spur surgery, breast augmentation, right patellofemoral joint replacement in 2019, gastric sleeve, right knee arthroscopic partial lateral meniscectomy synovectomy and chondroplasty. Family history: Parents are alive, mother we essential hypertension Social history: Negative for use of tobacco or alcohol. Allergies: The patient reports allergy to codeine but she has been able to take in the past hydrocodone with no problems. Review of system: Negative on admission Hospital course: The patient was admitted and taken to the operating room for a total knee revision arthroplasty, procedure that went uneventful. Postoperatively the patient remained hemodynamically stable and afebrile. She has significant difficulty with pain control and was slow to progress with physical therapy. The patient received antibiotic and anticoagulation prophylaxis as per protocol. The patient was evaluated by physical therapy and started rehabilitation treatment with ambulation with the use of walker, weig htbearing as tolerated, range of motion exercises and bed transfers. The patient was also evaluated by case management and arrangements were made for discharge home with home health, which was successfully completed on postop day 0. The patient tolerated diet well. On postop day #2 the patient was with a much better pain control, it was easier to perform ambulation and transfers with less difficulty and the patient was dismissed. Condition on discharge: Good Disposition: The patient will be dismissed home with home health. Follow-up will be done at the office in 3 weeks. The patient is to continue with physical therapy and rehabilitation at home and be ambulatory with the use of a walker, weightbearing as tolerated. Continue taking pain medication as instructed as well as anticoagulation prophylaxis. Continue with home medications also as instructed and continue with pre admission diet.] RANJIT GILLETTE MD ] RANJIT GILLETTE MD Apr 17, 2025 17:01
[2025-04-17] MEDS ORDERED: APIX2.5T PO (17:04)
[2025-04-17] MEDS ORDERED: OXYC-38 PO (17:04)
[2025-04-18 00:19] VITALS: BP 114/58; PULSE 69; RESP 17; TEMP 98.1
[2025-04-18 04:00] VITALS: BP 118/56; PULSE 80; RESP 18; TEMP 98
[2025-04-18 08:00] VITALS: BP 127/59; PULSE 77; RESP 18; TEMP 98.3; O2SAT 96
[2025-04-18 12:00] VITALS: BP 115/59; PULSE 70; RESP 18; TEMP 98.1
[2025-04-18] MEDS: MAGNESIUM CITRATE 296 ML SOLUTION PO ONE (15:36)
[2025-04-19] MEDS ORDERED: levoTHYROxine 25 MCG TABLET PO SCH (06:30)
[2025-04-19] MEDS ORDERED: levoTHYROxine 112 MCG TABLET PO SCH (06:30)
[2025-04-19] MEDS ORDERED: BisaCODYL 10 MG SUPP.RECT RC PRN (16:00)
== END 2025-04-18 16:40 | disposition home health service (06) ==
LOC: DAH 08:59 → DAHIP 09:00 → DAH 09:00 → 4AH 17:28
PROVIDERS: ADMIT Orthopaedic Surgery; ATTEND Orthopaedic Surgery
DX: M17.11 Unilateral primary osteoarthritis, right knee (principal); G89.18 Other acute postprocedural pain; I10 Essential (primary) hypertension; E11.9 Type 2 diabetes mellitus without complications; E03.9 Hypothyroidism, unspecified; E78.5 Hyperlipidemia, unspecified; F32.9 Major depressive disorder, single episode, unspecified; D64.9 Anemia, unspecified; Z79.899 Other long term (current) drug therapy; Z98.890 Other specified postprocedural states
CPT/HCPCS: 85025; 81003; 36415 ×2; 93005; 87641; 27447; 96376 ×3; 96375; 82948 ×9; 88311; 88304; 97161; 97530 ×6; 96365; 80048; 85027; 97116 ×4; G0378 ×49; A4663; J7120; C1713 ×2; A4649 ×4; A4600 ×2; J0690 ×6; J3490 ×8; J3010 ×3; J1100; J7030; J2003; J2704; J2405 ×3; J2710; J2795; J1885 ×6; J3370 ×2; A9272; A4930 ×3; C1776; A4215; A4223 ×2; A4222; A4221; A4216

== ENCOUNTER → 2025-10-01 | Outpatient (CLI) | payer MEDICARE ==
[2025-10-01 12:09] LABS: ERYTHROCYTE SEDIMENTATION RATE 12 MM/HR (0-30)
[2025-10-01 12:10] LABS: IMMATURE GRANULOCYTE ABSOLUTE 0.01 K/uL (0-1); NUCLEATED RED BLOOD CELLS 0.0 % (0.0-0.19); PLATELET COUNT (AUTO) 246 K/uL (130-400); RED BLOOD CELL COUNT(AUTO) 4.37 MIL/uL (4.00-5.50); RED CELL DISTRIBUTION WIDTH 15.2 % (11.0-15.5); WHITE BLOOD COUNT (AUTO) 5.1 K/uL (4.8-10.8)
== END | disposition home or self-care (01) ==
LOC: LAB 11:32
PROVIDERS: ATTEND Orthopaedic Surgery
DX: M25.461 Effusion, right knee (principal)
CPT/HCPCS: 36415; 85025; 85651; 86140